=== PATIENT | female | born 2000 | race Caucasian/White ===

== ENCOUNTER 2019-03-16 02:30 | Emergency (ER) | payer MEDICAID ==
[~2019-03-16] VITALS: Ht 157.5 cm; Wt 47.0 kg
[2019-03-16 06:21] VITALS: BP 120/66
== END 2019-03-16 06:22 | disposition home or self-care (01) ==
LOC: ER 02:30
DX: J06.9 Acute upper respiratory infection, unspecified (principal)
CPT/HCPCS: 87070; 87430; 99283